=== PATIENT | female | born 1995 | race Caucasian/White ===

== ENCOUNTER 2020-10-18 06:38 | Emergency (ER) | payer OTHER ==
[2020-10-18 06:51] VITALS: BP 105/64; PULSE 87; TEMP 99.1; BMI 30.1
[2020-10-18] MEDS ORDERED: KETOROLAC TROMETHAMINE 30 MG/1 ML VIAL ONE (07:34)
[2020-10-18] MEDS ORDERED: LIDOCAINE 5% TOPICAL PATCH ONE (07:34)
[2020-10-18] MEDS ORDERED: METHOCARBAMOL 500 MG TABLET ONE (07:34)
[2020-10-18] MEDS ORDERED: KETOROLAC TROMETHAMINE 30 MG/1 ML VIAL IM ONE (07:43)
[2020-10-18] MEDS ORDERED: LIDOCAINE 5% TOPICAL PATCH TP ONE (07:44)
[2020-10-18] MEDS ORDERED: METHOCARBAMOL 500 MG TABLET PO ONE (07:44)
[2020-10-18] MEDS ORDERED: LIDOCAINE PATCH REMOVAL MC SCH (22:00)
== END 2020-10-18 08:05 | disposition home or self-care (01) ==
LOC: FER 06:38
PROC: 3E0233Z Introduction of Anti-inflammatory into Muscle, Percutaneous Approach (ICD-10-PCS; principal; 2020-10-18)
DX: M62.838 Other muscle spasm (principal)
CPT/HCPCS: 96372; 99284-25

== ENCOUNTER 2022-05-12 22:44 | Emergency (ER) | payer OTHER ==
[2022-05-12 23:03] VITALS: BP 111/56; PULSE 86; RESP 16; TEMP 98; BMI 29.1
[2022-05-12] MEDS ORDERED: SODIUM CHLORIDE 1,000 ML IV ONE (23:20)
[2022-05-12] MEDS ORDERED: ONDANSETRON 4 MG/2 ML VIAL IVPUSH ONE (23:20)
[2022-05-12] MEDS ORDERED: ONDANSETRON 4 MG/2 ML VIAL ONE (23:38)
[2022-05-13 00:43] LABS: HEMATOCRIT 35.4 % (32.4-45.2); MCHC 33.8 g/dl (32.0-36.0); MEAN CELL VOLUME 94.7 fl (80-96); MEAN PLT VOLUME 7.8 fl (7.5-11.1); PLATELET COUNT 315 10^3/uL (134-434); RBC 3.73 M/mm3 (3.60-5.2); RDW 13.1 % (11.6-15.6)
[2022-05-13 01:11] LABS: BLOOD UREA NITROGEN 8.8 mg/dL (7-18); CALCIUM 8.9 mg/dL (8.5-10.1)
[2022-05-13 01:14] LABS: CREATININE 0.8 mg/dL (0.55-1.3)
[2022-05-13 01:16] LABS: BILIRUBIN,TOTAL 0.3 mg/dL (0.2-1); TOT PROT 7.2 g/dl (6.4-8.2)
== END 2022-05-13 03:49 | disposition home or self-care (01) ==
LOC: FER 22:44
PROC: 3E033GC Introduction of Other Therapeutic Substance into Peripheral Vein, Percutaneous Approach (ICD-10-PCS; principal; 2022-05-12)
PROC: 3E0337Z Introduction of Electrolytic and Water Balance Substance into Peripheral Vein, Percutaneous Approach (ICD-10-PCS; 2022-05-12)
DX: K52.9 Noninfective gastroenteritis and colitis, unspecified (principal)
CPT/HCPCS: 36415; 74177-TC; 80053; 81025; 85027; 99285-25; Q9967

== ENCOUNTER 2022-06-11 09:14 | Emergency (ER) | payer OTHER ==
[2022-06-11 09:21] VITALS: BP 124/79; PULSE 86; RESP 18; TEMP 98.8; BMI 27.3
[2022-06-11 10:05] LABS: HCG,QUALITATIVE URINE Negative
[2022-06-11 10:10] LABS: EPITHELIAL CELLS MODERATE /hpf
[2022-06-11 10:11] LABS: URINE MUCUS 2+
[2022-06-11 10:20] LABS: HEMOGLOBIN 12.6 G/dL (10.7-15.3); MCH 33.7 pg (25.7-33.7); MCHC 35.1 g/dl (32.0-36.0); MEAN CELL VOLUME 96.1 fl (80-96); MEAN PLT VOLUME 8.1 fl (7.5-11.1); RBC 3.75 10^6/uL (3.60-5.2); WHITE BLOOD COUNT 8.8 10^3/uL (4.0-10.8)
[2022-06-11 10:25] LABS: PLATELET ESTIMATE ADEQUATE
[2022-06-11 10:27] LABS: ALBUMIN 4.4 g/dl (3.4-5.0); BILIRUBIN,TOTAL 0.6 mg/dl (0.2-1); CALCIUM 8.9 mg/dl (8.5-10); CREATININE 0.7 mg/dl (0.55-1.3); TOT PROT 7.1 g/dl (6.4-8.2)
== END 2022-06-11 12:10 | disposition home or self-care (01) ==
LOC: FER 09:14
DX: K59.00 Constipation, unspecified (principal); R19.09 Other intra-abdominal and pelvic swelling, mass and lump
CPT/HCPCS: 36415; 74177-TC; 80053; 81003; 81015; 84703; 85027; 87086; 99285-25

== ENCOUNTER 2023-05-01 19:58 | Emergency (ER) | payer OTHER ==
[2023-05-01 20:06] VITALS: BP 109/62; TEMP 99; BMI 29.1
[2023-05-01] MEDS ORDERED: predniSONE 20 MG TABLET (UD) ONE (20:08)
[2023-05-01] MEDS ORDERED: predniSONE 20 MG TABLET (UD) PO ONE (20:09)
[2023-05-01] MEDS: ALBUTEROL SO4 2.5/IPRATROPIUM 0.5 INH SOL 3 ML VIAL.NEB. NEB SCH ×4 (20:20→21:02)
[2023-05-01 21:07] VITALS: PULSE 90; RESP 20
== END 2023-05-01 21:29 | disposition home or self-care (01) ==
LOC: FER 19:58
PROC: 3E0F7GC Introduction of Other Therapeutic Substance into Respiratory Tract, Via Natural or Artificial Opening (ICD-10-PCS; principal; 2023-05-01)
DX: R05.9 Cough, unspecified (principal); R06.02 Shortness of breath; J45.901 Unspecified asthma with (acute) exacerbation; Z20.822 Contact with and (suspected) exposure to COVID-19
CPT/HCPCS: 0241U-QW; 99283-25

== ENCOUNTER 2023-09-09 16:08 | Emergency (ER) | payer OTHER ==
[2023-09-09 17:06] VITALS: BP 115/70; PULSE 74; RESP 16; TEMP 98.4; BMI 29.0
[2023-09-09] MEDS ORDERED: KETOROLAC TROMETHAMINE 30 MG/1 ML VIAL ONE (18:54)
[2023-09-09] MEDS: KETOROLAC TROMETHAMINE 30 MG/1 ML VIAL IM ONE (18:59)
== END 2023-09-09 19:01 | disposition home or self-care (01) ==
LOC: FER 16:08
PROC: 3E0233Z Introduction of Anti-inflammatory into Muscle, Percutaneous Approach (ICD-10-PCS; principal; 2023-09-09)
DX: M25.511 Pain in right shoulder (principal); M25.551 Pain in right hip; W17.89XA Other fall from one level to another, initial encounter; Y92.39 Other specified sports and athletic area as the place of occurrence of the external cause; Y93.31 Activity, mountain climbing, rock climbing and wall climbing
CPT/HCPCS: 73030-TC-RT-FY; 73060-TC-RT-FY; 73070-TC-RT-FY; 81025; 99284-25

== ENCOUNTER 2024-10-25 10:23 | Emergency (ER) | payer OTHER ==
[2024-10-25] MEDS ORDERED: DEXAMETHASONE SOD PHOSPHATE 10 MG/1 ML VIAL IVPUSH ONE (10:25)
[2024-10-25] MEDS ORDERED: ALBUTEROL SO4 2.5/IPRATROPIUM 0.5 INH SOL 3 ML VIAL.NEB. NEB ONE (10:48)
[2024-10-25] MEDS ORDERED: DEXAMETHASONE SOD PHOSPHATE 10 MG/1 ML VIAL ONE (10:48)
[2024-10-25] MEDS: ALBUTEROL SO4 2.5/IPRATROPIUM 0.5 INH SOL 3 ML VIAL.NEB. NEB ONE (11:01)
[2024-10-25] MEDS: DEXAMETHASONE SOD PHOSPHATE 10 MG/1 ML VIAL IM ONE (11:01)
[2024-10-25 13:35] VITALS: BP 116/61; PULSE 80; RESP 18; TEMP 99; BMI 29.4
== END 2024-10-25 12:16 | disposition home or self-care (01) ==
LOC: FER 10:23
PROC: 3E023GC Introduction of Other Therapeutic Substance into Muscle, Percutaneous Approach (ICD-10-PCS; principal; 2024-10-25)
PROC: 3E0F7GC Introduction of Other Therapeutic Substance into Respiratory Tract, Via Natural or Artificial Opening (ICD-10-PCS; 2024-10-25)
DX: J45.901 Unspecified asthma with (acute) exacerbation (principal); R05.9 Cough, unspecified; R06.02 Shortness of breath
CPT/HCPCS: 71045-TC-FY; 87637-QW; 99284-25; J1100